=== PATIENT | female | born 1985 | race Two or more races ===

== ENCOUNTER 2025-01-12 21:57 | Emergency (ER) | payer OTHER ==
[~2025-01-12] VITALS: Ht 165.1 cm; Wt 59.0 kg
[2025-01-12 22:15] VITALS: TEMP 98.6
[2025-01-12 22:38] LABS: Hematocrit 34.9 % (36.0-46.0); Hemoglobin 11.6 g/dL (12.2-16.2); Mean Corpuscular Hemoglobin 28.5 pg (28.0-32.0); Mean Corpuscular Volume 85.8 fL (80.0-100.0); Nucleated Red Blood Cells % 0.1 %
[2025-01-12 22:41] LABS: Urine Protein, UAD Negative (Negative)
[2025-01-12 22:50] LABS: Chloride 106 mmol/L (98-107); Potassium 3.7 mmol/L (3.5-5.1); Sodium 140 mmol/L (136-145)
[2025-01-12 22:51] LABS: Anion Gap 7 (5-15); Calcium 9.1 mg/dL (8.7-10.4); Carbon Dioxide 27 mmol/L (20-31)
[2025-01-12 22:56] LABS: BUN/Creatinine Ratio 12.1 (10.0-20.0); Blood Urea Nitrogen 12 mg/dL (9-23); Glucose 100 mg/dL (74-106); Lipase 30 U/L (12-53)
--- NOTE | 2025-01-12 23:05 | ED.PDOC ---
History of Present Illness HPI Comments 39-year-old female presents with chief complaint of nausea, vomiting, and diarrhea for the past 4 days. She denies having any abdominal pain, bloody vomitus or diarrhea, constipation, urinary symptoms, fever, chills, further associated symptoms. She denies having any significant past medical, surgical, or family history. Social history for marijuana and occasional alcohol use. Last menstrual period was 2 months ago. Patient denies being , currently. Chief Complaint: Nausea/Vomiting Time Seen by MD: 22:10 Reviewed Notes: Nurses Notes, Medications, Allergies Allergies: Coded Allergies: NO KNOWN ALLERGIES (Unverified , 01/12/25) Home Meds Active Scripts Vit W/ Ferrous Fumara ( One Daily) Daily Tab, 1 TAB PO DAILY, #90 TAB 3 Refills Prov:GENEVIEVE COLINDRES MD 01/13/25 Pyridoxine Hcl (B-6) 50 Mg Tab, 25 MG OR Q6HPRN PRN for 5 Days, #10 TAB Prov:GENEVIEVE COLINDRES MD 01/13/25 Information Source: Patient Mode of Arrival: Ambulatory Severity: Moderate Timing: Days Duration: Since onset Prehospital treatment: None Review of Systems: REVIEW OF SYSTEMS: No fever, no chills, or fatigue HEENT: No sore throat, no earache, no congestion, no neck pain. Cardiac: No chest pain. No palpitations. Lungs: No shortness of breath, no cough. GI: Nausea, vomiting, diarrhea, no constipation, no abdominal pain : No dysuria, frequency, or urgency. No hematuria. Musculoskeletal: No joint pain , no joint swelling, no extremity edema. Skin: No rash, no itching. Neuro: No headache, no dizziness, no weakness Vital Signs Vital Signs Date Time Temp Pulse Resp B/P (MAP) Pulse Ox O2 Delivery O2 Flow Rate FiO2 01/13/25 00:14 78 18 114/60 (78) 98 01/12/25 22:15 98.6 98.6 Physical Exam General: Awake, alert and oriented. No acute distress. Skin: Skin in warm, dry and intact. Appropriate color for ethnicity. HEENT: The head is normocephalic and atraumatic. Conjunctivae are clear without exudates or hemorrhage. Sclera is non-icteric. EOM are intact. No signs of nystagmus. Eyelids are normal in appearance without swelling or lesions. Oral mucosa is pink and moist Neck: The neck is supple with normal range of motion. No JVD. Cardiac: Heart rate and rhythm are normal. No murmurs, gallops, or rubs are auscultated. Respiratory: No signs of respiratory distress. Lung sounds are clear in all lobes bilaterally without rales, rhonchi, or wheezes. Abdominal: Abdomen is soft, non-tender without distention, guarding or rigidity. Bowel sounds are present and normoactive in all four quadrants. Extremities: Upper and lower extremities are atraumatic in appearance without de formity or edema. Neurological: The patient is awake, alert and oriented to person, place, and time with normal speech. Speech is clear. There is no facial asymmetry. Psychiatric: Appropriate mood and affect. Good judgement and insight. 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 Was a procedure done?: No Differential Dx Considerations may include: Differential diagnoses considered include: Abdominal aortic aneurysm, DE, esophageal rupture, intestinal obstruction, mesenteric ischemia, perforated viscus or solid organ rupture, CHF with hepatomegaly, pneumonia, abscess, appendicitis, biliary disease, diverticulitis, gastritis, gastroenteritis, hepatitis, hernia, inflammatory bowel disease, pancreatitis, peptic ulcer disease, urinary tract infection, ureteral colic, constipation, GERD, irritable syndrome, abdominal wall pain, nonspecific abdominal pain, herpes zoster, nephrolithiasis, electrolyte imbalance, dehydration, viral syndrome, among others X-Ray, Labs, Meds, VS Vital Signs Date Time Temp Pulse Resp B/P (MAP) Pulse Ox O2 Delivery O2 Flow Rate FiO2 01/13/25 00:14 78 18 114/60 (78) 98 01/12/25 22:15 98.6 96 18 107/72 (84) 97 98.6 Lab Test 01/12/25 22:25 Range/Units White Blood Count 10.9 H 4.4-10.8 10^3/uL Red Blood Count 4.06 4.0-5.20 10^6/uL Hemoglobin 11.6 L 12.2-16.2 g/dL Hematocrit 34.9 L 36.0-46.0 % Mean Corpuscular Volume 85.8 80.0-100.0 fL Mean Corpuscular Hemoglobin 28.5 28.0-32.0 pg Mean Corpuscular Hemoglobin Concent 33.2 32.0-36.0 g/dL Red Cell Distribution Width 17.4 H 11.8-14.3 % Platelet Count 362 140-450 10^3/uL Mean Platelet Volume 6.9 6.9-10.8 fL Neutrophils (%) (Auto) 69.6 37.0-80.0 % Lymphocytes (%) (Auto) 21.5 10.0-50.0 % Monocytes (%) (Auto) 7.6 0.0-12.0 % Eosinophils (%) (Auto) 1.1 0.0-7.0 % Basophils (%) (Auto) 0.2 0.0-2.0 % Neutrophils # (Auto) 7.6 1.6-8.6 10 ^3/uL Lymphocytes # (Auto) 2.3 0.4-5.4 10 ^3/uL Monocytes # (Auto) 0.8 0-1.3 10 ^3/uL Eosinophils # (Auto) 0.1 0-0.8 10 ^3/uL Basophils # (Auto) 0 0-0.2 10 ^3/uL Nucleated Red Blood Cells 0.1 % Urine Color Light-yellow Yellow Urine Clarity Clear Clear Urine pH 5.5 5.0-9.0 Urine Specific [place] 1.027 1.001-1.035 Urine Protein Negative Negative Urine Ketones Negative Negative Urine Blood Negative Negative /uL Urine Nitrite 2+ H Negative Urine Bilirubin Negative Negative Urine Urobilinogen Normal Negative mg/dL Urine Leukocyte Esterase Negative Negative /uL Urine RBC 3 0 - 4 /hpf Urine Microscopic WBC 3 0-5 /HPF Urine Squamous Epithelial Cells Few <5 /hpf Urine Calcium Oxalate Crystals Few None Seen Urine Bacteria Few H None Seen /hpf Urine Mucus Few None Seen Urine Glucose Normal Normal mg/dL Urine Test Positive Negative Sodium Level 140 136-145 mmol/L Potassium Level 3.7 3.5-5.1 mmol/L Chloride Level 106 98-107 mmol/L Carbon Dioxide Level 27 20-31 mmol/L Anion Gap 7 5-15 Blood Urea Nitrogen 12 9-23 mg/dL Creatinine 0.99 0.550-1.02 mg/dL Glomerular Filtration Rate Calc 74 >90 mL/min BUN/Creatinine Ratio 12.1 10.0-20.0 Serum Glucose 100 74-106 mg/dL Calcium Level 9.1 8.7-10.4 mg/dL Lipase 30 12-53 U/L Beta HCG, Quantitative 35352.0 H 1.5-4.2 mIU/mL Current Medications Medications (Trade) Dose Ordered Sig/Ramon Route Start Time Stop Time Status Last Admin Ondansetron HCl (Zofran Po) 4 mg ONCE ONCE PO 01/12/25 22:15 01/12/25 22:16 DC 01/13/25 00:09 Time of 1ST Reevaluation: 22:40 Reevaluation 1ST: Unchanged Patient Education/Counseling: Treatment, Need For Follow Up Family Education/Counseling: No Family Present SEPSIS Sepsis Screen Date sepsis recognized/suspect: Jan 12, 2025 Time Sepsis recognized/suspect: 2204 Recent Procedure: No On Antibiotic Therapy: No Respiratory Rate >20: No Heart Rate >90: Yes Temp<36 C (96.8 F) or >38.3 C: No SBP <90 or MAP <65 mmHG: No New Acute Mental Status Change: No Is the patient on CPAP, BIPAP,: No Physician Orders Ob Ultrasound Comp Less 14wks (01/12/25 23:10) Vital Signs Date Time Temp Pulse Resp B/P (MAP) Pulse Ox O2 Delivery O2 Flow Rate FiO2 01/13/25 00:14 78 18 114/60 (78) 98 01/12/25 22:15 98.6 96 18 107/72 (84) 97 98.6 Laboratory Tests Test 01/12/25 22:25 White Blood Count 10.9 10^3/uL (4.4-10.8) H Departure 1 Departure Time of Disposition: 00:24 Impression: Primary Impression: Nausea & vomiting Additional Impression: Disposition: HOME / SELF CARE / HOMELESS Condition: Stable Additional Instructions: ED DISCHARGE INSTRUCTIONS Instructions: Please read all instructions provided in this packet carefully. Although you have been discharged from the Emergency Department, this does not mean that you have a "clean bill of health". []No definitive diagnosis for your symptoms has been made today. It is possible that you are in the process of developing a serious illness. This is why you must return to the ED without fail if any new or worsening symptoms (especially if your symptoms include chest pain, trouble breathing, abdominal pain, fever, headache, confusion, trouble s eeing, or trouble walking) It is also very important that you see a primary care doctor or fibreglass laminator within the next 3-5 days to follow up. If you are unable to get an appointment, return to the ED for re-evaluation. education e-Prescriptions Vit W/ Ferrous Fumara ( One Daily) Daily Tab 1 TAB PO DAILY, #90 TAB 3 Refills Prov: GENEVIEVE COLINDRES MD 01/13/25 Pyridoxine Hcl (B-6) 50 Mg Tab 25 MG OR Q6HPRN PRN for 5 Days, #10 TAB Prov: GENEVIEVE COLINDRES MD 01/13/25 Comments 39-year-old female who presents to the emergency department with nausea vomiting. test positive, ultrasound showing live IUP at 9 weeks. Patient eloped from the emergency department with prior to reviewing test results with patient. Attempted to reach patient by phone, was unable to leave voicemail to the ma ilbox being full. 01/13/2025 @2009: Attempted to reach patient by phone again, no answer, mailbox full. Critical Care Note Critical Care Time?: No Stability Stability form required: No Heart Score Heart Score: Heart Score Response (Comments) Value History N/A 0 EKG N/A 0 Age N/A 0 Risk Factors N/A 0 Troponin N/A 0 Total 0 I personally scribed for GENEVIEVE COLINDRES MD ([email or web address]) on 01/12/25 at 23:05. Electronically submitted by Jose King ([email or web address]). GENEVIEVE COLINDRES MD Jan 12, 2025 23:05
[2025-01-13] MEDS: ONDANSETRON ODT 4 MG TAB PO ONE (00:09)
[2025-01-13 00:14] VITALS: BP 114/60; PULSE 78; RESP 18; O2SAT 98
[2025-01-13] MEDS ORDERED: PREN-96 PO (00:25)
[2025-01-13] MEDS ORDERED: PYRI50TA OR (00:25)
--- NOTE | 2025-01-13 00:33 | DVH ---
INDICATION: Nausea, vomiting, TECHNIQUE: Multiple real-time grayscale transabdominal sonographic images along with color and duplex Doppler of the uterus and ovaries were obtained. COMPARISON: None FINDINGS: The uterus measures 9.5 x 8.6 x 6.6 cm. Gestational sac measuring 4.1 cm and crown-rump kerry gth measuring 3.8 cm with positive heart tones documented at 160 beats per minute and yolk sac identified. Right ovary measures 1.7 x 1.7 x 1.4 cm with normal Doppler color flow. Left ovary measures 2.5 x 2.4 x 1.8 cm with normal Doppler color flow and contains a 1.3 x 1.3 x 1.3 cm anechoic cystic structure. IMPRESSION: 1. Single viable intrauterine gestation at 10 weeks 1 day gestational age with positive heart t ones and estimated date of delivery of 08/09/2025. 2. Left ovarian cyst.
== END 2025-01-13 01:14 | disposition home or self-care (01) ==
LOC: ER 21:57
DX: Z34.91 Encounter for supervision of normal pregnancy, unspecified, first trimester (principal); F12.90 Cannabis use, unspecified, uncomplicated; F10.90 Alcohol use, unspecified, uncomplicated; Z79.899 Other long term (current) drug therapy; Z3A.10 10 weeks gestation of pregnancy; Y90.9 Presence of alcohol in blood, level not specified
CPT/HCPCS: 36415; 76801; 80048; 81001; 81025; 83690; 84702; 85025; 99284; Q0162